=== PATIENT | female | born 1960 | race Caucasian/White ===

== ENCOUNTER 2016-12-27 18:16 | Emergency (ER) | payer MEDICARE ==
[2016-12-27 18:37] VITALS: BP 107/62; PULSE 92; RESP 16; TEMP 98.5; O2SAT 96
--- NOTE | 2016-12-27 19:56 | C.PDOC ---
History Of Present Illness 56 y/o female presents to the ED with complains of left ear pressure and ringing in left ear for the past couple days. Denies headache, dizziness, ear discharge, neck pain, sore throat or any other complaints. Time Seen by Provider: 12/27/16 19:18 Chief Complaint (Nursing): ENT Problem History Per: Patient History/Exam Limitations: None Onset/Duration Of Symptoms: Days Current Symptoms Are (Timing): Still Present Quality (Ear): denies: Discharge Symptoms Have Been: Continuous Severity: Moderate Anticoagulant/Antiplatlet Use?: No Past Medical History Reviewed: Historical Data, Nursing Documentation, Vital Signs Vital Signs: Last Vital Signs Temp 98.5 F 12/27/16 18:36 Pulse 92 H 12/27/16 18:36 Resp 16 12/27/16 18:36 BP 107/62 12/27/16 18:36 Pulse Ox 96 12/27/16 20:41 - Medical History PMH: Anxiety, Asthma, Depression, Diabetes, HTN, Hyperlipidemia, Hyperthyroidism Surgical History: Coronary Stent Family History: States: Unknown Family Hx - Social History Hx Tobacco Use: No Hx Alcohol Use: No Hx Substance Use: No - Immunization History Hx Tetanus Toxoid Vaccination: No Hx Influenza Vaccination: No Hx Pneumococcal Vaccination: No Review Of Systems Except As Marked, All Systems Reviewed And Found Negative. Constitutional: Negative for: Fever ENT: Positive for: Other (left ear pressure, ringing in left ear). Negative for : Ear Discharge, Throat Pain Neurological: Negative for: Headache, Dizziness Physical Exam - Physical Exam Appears: Non-toxic, No Acute Distress Skin: Warm, Dry, No Rash Head: Atraumatic, Normacephalic Eye(s): bilateral: Normal Inspection Ear(s): Left: TM Obscured By Wax (moderate cerumen in canal), Other (no discharge, no tragal tenderness) Nose: Normal Oral Mucosa: Moist Throat: Normal, No Erythema Neck: Normal, Normal ROM, Supple, No Other (swelling) Lymphatic: No Adenopathy Chest: Symmetrical, No Tenderness Cardiovascular: Rhythm Regular, No Murmur Respiratory: Normal Breath Sounds, No Rales, No Rhonchi, No Wheezing Extremity: Bilateral: Atraumatic Neurological/Psych: Oriented x3, Normal Speech Gait: Steady ED Course And Treatment O2 Sat by Pulse Oximetry: 96 (room air) Pulse Ox Interpretation: Normal Progress Note: Instruct patent to follow up with ENT outpatient if symptoms persist in 3-4 days. Disposition Counseled Patient/Family Regarding: Diagnosis, Need For Followup, Rx Given - Disposition Referrals: ENT, Of your choice [Other] Disposition: HOME/ ROUTINE Disposition Time: 19:54 Condition: STABLE Additional Instructions: Please follow up with your ENT May use debrox drops Return to ER if worse Prescriptions: Carbamide Peroxide [Debrox Ear Drops] 3 drop AU BID #1 bottle Instructions: Cerumen Impaction (ED) - Clinical Impression Clinical Impression: Impacted cerumen of left ear - PA / MORALE OFFICER / Resident Statement MD/DO has reviewed & agrees with the documentation as recorded. - Scribe Statement The provider has reviewed the documentation as recorded by the Lu Larkin All medical record entries made by the Lu were at my direction and personally dictated by me. I have reviewed the chart and agree that the record accurately reflects my personal performance of the history, physical exam, medical decision making, and the department course for this patient. I have also personally directed, reviewed, and agree with the discharge instructions and disposition.
== END 2016-12-27 19:59 | disposition home or self-care (01) ==
LOC: C.ER 18:16
DX: H61.22 Impacted cerumen, left ear (principal); I10 Essential (primary) hypertension; E78.5 Hyperlipidemia, unspecified; E11.9 Type 2 diabetes mellitus without complications

== ENCOUNTER 2017-08-28 20:17 | Emergency (ER) | payer MEDICARE ==
[2017-08-28 20:42] VITALS: BP 142/84; PULSE 94; TEMP 99.5; O2SAT 96
--- NOTE | 2017-08-28 21:08 | C.PDOC ---
History Of Present Illness 57 year old female with a past medical history of OA, sciatica presents to the emergency department for evaluation of right back pain for the past three days. Reports that the pain radiates to the right leg and knee. Patient admits chronic pain to the right knee due to osteoarthritis, but states this is worse with the associated back pain. Otherwise, pt denies high fever, chills, CP, SOB, a bd. pain, N/V, denies saddle anesthesia, incontinence, denies new weakness, sensory or vascular deficits to B/L LEs, denies known recent trauma or injury. Ambulate to ED w/assistance cane ( baseline), not in any apparent distress. PMD: Dr. Albert Calderón Time Seen by Provider: 08/28/17 20:43 Chief Complaint (Nursing): Lower Extremity Problem/Injury History Per: Patient History/Exam Limitations: no limitations Onset/Duration Of Symptoms: Days (x3) Current Symptoms Are (Timing): Still Present Past Medical History Reviewed: Historical Data, Nursing Documentation, Vital Signs Vital Signs: Last Vital Signs Temp 99.5 F 08/28/17 20:39 Pulse 94 H 08/28/17 20:39 Resp 18 08/28/17 20:39 BP 142/84 08/28/17 20:39 Pulse Ox 96 08/28/17 21:20 - Medical History PMH: Anxiety, Arthritis, Asthma, Depression, Diabetes, Fibromyalgia, HTN, Hyperlipidemia, Hyperthyroidism Surgical History: Coronary Stent Family History: States: Unknown Family Hx - Social History Hx Tobacco Use: No Hx Alcohol Use: No Hx Substance Use: No - Immunization History Hx Tetanus Toxoid Vaccination: No Hx Influenza Vaccination: No Hx Pneumococcal Vaccination: No Review Of Systems Except As Marked, All Systems Reviewed And Found Negative. Constitutional: Negative for: Fever Gastrointestinal: Negative for: Nausea, Vomiting, Abdominal Pain Musculoskeletal: Positive for: Back Pain (Right), Leg Pain (Right knee pain) Physical Exam - Physical Exam Appears: Non-toxic, No Acute Distress Skin: Normal Color, Warm, No Rash Head: Normacephalic Eye(s): bilateral: PERRL Nose: No Flaring, No Discharge Oral Mucosa: Moist Throat: No Drooling Neck: Trachea Midline, Supple Gastrointestinal/Abdominal: Soft, No Tenderness, No Distention, No Guarding Back: No CVA Tenderness, Muscle Spasm (right lumbar paraspinal), Paraspinal Tenderness (Right lumbar, mod) Extremity: Normal ROM (B/L LEs), Tenderness (Mild tenderness to the posterior aspect of the right knee), No Calf Tenderness (B/L), Capillary Refill (less than 2sec to B/L LEs), No Deformity, No Swelling Neurological/Psych: Oriented x3, Normal Speech, Normal Motor, Normal Sensation, Normal Reflexes ED Course And Treatment O2 Sat by Pulse Oximetry: 96 (RA) Pulse Ox Interpretation: Normal Progress Note: Pt refused UA and further tests offered. Pt request only pain medication. On re-evaluation, pt is afebrile, hemodynamicaly stable. Non- toxic. Ambulatory in ED w/saeine gait, tolerate PO wlel in ED. Abd: benign, (- ) guaridng, (-) rebound. RLE: FAROM of knee, no neurovascular deficits, no calf pain. Back: (-) CVA tenderness. neuorlogicaly intact. Pt has clinical findings c/w Right lower back pain, Right knee pain/posterior aspect. Pt advised. ref. to f/u with PMD in 2-3 days for re-eval. return to ED if any worsening or new changes. Medical Decision Making Medical Decision Making: Time: 20:59 Initial Plan: --Accucheck --Urinalysis Disposition Counseled Patient/Family Regarding: Diagnosis, Need For Followup, Rx Given - Disposition Referrals: Albert Calderón MD [Primary Care Provider] - Disposition: HOME/ ROUTINE Disposition Time: 21:20 Condition: STABLE Additional Instructions: TAKE MEDICATION PRESCRIBED FOLLOW UP WITH PMD, ORTHOPEDIST IN 2-3 DAYS FOR RE-EVALUATION AND TREATMENT. RETURN TO ED IF ANY NEW CHANGES. Prescriptions: Methocarbamol [Robaxin] 500 mg PO TID #14 tab traMADol [Ultram] 50 mg PO TID #7 tab Instructions: Back Pain (ED), Arthralgia (ED), Knee Pain (ED) Forms: [facility] (Israeli) - Clinical Impression Clinical Impression: Arthritis, Lumbar radiculopathy, Knee pain - Scribe Statement The provider has reviewed the documentation as recorded by the Scribe Olena Nogueira All medical record entries made by the Scribe were at my direction and personally dictated by me. I have reviewed the chart and agree that the record accurately reflects my personal performance of the history, physical exam, medical decision making, and the department course for this patient. I have also personally directed, reviewed, and agree with the discharge instructions and disposition.
[2017-08-28 21:54] VITALS: RESP 20
== END 2017-08-28 21:53 | disposition home or self-care (01) ==
LOC: SUPCPDRO 20:17 → C.ER 20:17
DX: M54.16 Radiculopathy, lumbar region (principal); M13.861 Other specified arthritis, right knee; M25.561 Pain in right knee
CPT/HCPCS: 82948; 96372; 99284; J2930

== ENCOUNTER 2017-11-13 13:24 | Emergency (ER) | payer MEDICARE ==
[2017-11-13 13:39] VITALS: BMI 33.8
[2017-11-13 13:45] VITALS: BP 132/78; PULSE 73; RESP 18; TEMP 98.1; O2SAT 96
--- NOTE | 2017-11-13 13:47 | C.PDOC ---
History Of Present Illness 57 year old female presents to the emergency department status-post tripping over a phone cord while visiting a friend [facility] the [facility]. Patient describes her fall as falling back onto her right side. Patient complains of mild pain in her right shoulder, knee, hip, and ankle but denies head contusion or loss of consciousness. Time Seen by Provider: 11/13/17 13:42 Chief Complaint (Nursing): Lower Extremity Problem/Injury History Per: Patient Onset/Duration Of Symptoms: Hrs Current Symptoms Are (Timing): Still Present - Hip Description Of Injury: Fell, Tripped - Knee Description Of Injury: Fell, Other (tripped) - Ankle/Foot Description Of Injury: Fell, Other (tripped) Past Medical History Reviewed: Historical Data, Nursing Documentation, Vital Signs Vital Signs: Last Vital Signs Temp 98.1 F 11/13/17 13:36 Pulse 73 11/13/17 13:36 Resp 18 11/13/17 13:36 BP 132/78 11/13/17 13:36 Pulse Ox 96 11/13/17 13:47 - Medical History PMH: Anxiety, Arthritis, Asthma, Depression, Diabetes, Fibromyalgia, HTN, Hyperlipidemia, Hyperthyroidism Surgical History: Coronary Stent Family History: States: No Known Family Hx - Social History Hx Tobacco Use: No Hx Alcohol Use: No Hx Substance Use: No - Immunization History Hx Tetanus Toxoid Vaccination: No Hx Influenza Vaccination: No Hx Pneumococcal Vaccination: No Review Of Systems Except As Marked, All Systems Reviewed And Found Negative. Musculoskeletal: Positive for: Shoulder Pain, Leg Pain (hip and knee), Foot Pain (ankle). Negative for: Other (head contusion) Neurological: Negative for: Other (loss of consciousness) Physical Exam - Physical Exam Appears: Non-toxic, No Acute Distress Skin: Other (superficial abrasion to the lateral right ankle.) Head: Normacephalic Extremity: Normal ROM (in her right shoulder), Other (stands and walks normally. Right knee without pain or swelling. ) ED Course And Treatment O2 Sat by Pulse Oximetry: 96 (RA) Pulse Ox Interpretation: Normal Medical Decision Making Medical Decision Making: superficial contusions, no acute fx's, fully ambulatory Plan: Motrin 600mg PO Disposition Doctor Will See Patient In The: Office Counseled Patient/Family Regarding: Studies Performed, Diagnosis - Disposition Referrals: Albert Calderón MD [Medical Doctor] - Disposition: HOME/ ROUTINE Disposition Time: 13:47 Condition: GOOD Additional Instructions: ice packs 1/2 hour per hour, nothing hot motrin (as tolerated) 600 mg every 6 hours No hot showers for 2 days- makes joints more inflammed. follow-up with your PMD as needed. Instructions: Preventing Falls in the Older Adult, Contusion (DC) Forms: [employer] (Luxembourgish) - Clinical Impression Clinical Impression: Fall from standing - Scribe Statement The provider has reviewed the documentation as recorded by the Scribe (Tony Saldana) Provider Attestation: All medical record entries made by the Scribe were at my direction and personally dictated by me. I have reviewed the chart and agree that the record accurately reflects my personal performance of the history, physical exam, medical decision making, and the department course for this patient. I have also personally directed, reviewed, and agree with the discharge instructions and disposition.
== END 2017-11-13 13:57 | disposition home or self-care (01) ==
LOC: C.ER 13:24
DX: S30.0XXA Contusion of lower back and pelvis, initial encounter (principal); W01.0XXA Fall on same level from slipping, tripping and stumbling without subsequent striking against object, initial encounter; Y92.129 Unspecified place in nursing home as the place of occurrence of the external cause

== ENCOUNTER 2018-04-26 22:41 | Emergency (ER) | payer MEDICARE ==
[2018-04-26 22:41] VITALS: BMI 33.8
[2018-04-26 23:24] VITALS: TEMP 99.2
--- NOTE | 2018-04-26 23:46 | C.PDOC ---
History Of Present Illness 57 year old female with PMHx of DM, osteoarthritis, chronic back pain, DM, HTN, HLD, hypothyroidism, CAD with stent, [place] presents to the ED c/o productive cough with clear phlegm, abdominal discomfort and diarrhea. Patient reports she went to see her PMD Dr. Calderón who prescribed some medications, however patient reports that when she got to the pharmacy there were no medications for her. Patient has not taken any medications. Patient reports her cough keeps her up at night, and she also has decreased appetite and not able to tolerate PO. Patient also reports having skin patches on her legs and arms for 5 months, she went to see her core java software engineer who prescribed her a cream. Patient has an albuterol nebulizer at home. Patient denies fever, chills, nausea, vomit, back pain, rash, recent travel, sick contacts. Time Seen by Provider: 04/26/18 23:25 Chief Complaint (Nursing): Abdominal Pain History Per: Patient History/Exam Limitations: no limitations Onset/Duration Of Symptoms: Days (3) Current Symptoms Are (Timing): Still Present Location Of Pain/Discomfort: Diffuse Radiation Of Pain To:: None Quality Of Discomfort: "Pain" Associated Symptoms: Diarrhea. denies: Nausea, Vomiting, Loss Of Appetite Alleviating Factors: None Recent travel outside of the [place]: No Additional History Per: Patient Abnormal Vaginal Bleeding: No Past Medical History Reviewed: Historical Data, Nursing Documentation, Vital Signs Vital Signs: Last Vital Signs Temp 99.2 F 04/26/18 23:08 Pulse 87 04/26/18 23:08 Resp 20 04/26/18 23:08 BP 158/85 H 04/26/18 23:08 Pulse Ox 89 L 04/26/18 23:08 - Medical History PMH: Anxiety, Arthritis, Asthma, Depression, Diabetes, Fibromyalgia, HTN, Hyperlipidemia, Hyperthyroidism Surgical History: Coronary Stent Family History: States: Unknown Family Hx - Social History Hx Tobacco Use: No Hx Alcohol Use: No Hx Substance Use: No - Immunization History Hx Tetanus Toxoid Vaccination: No Hx Influenza Vaccination: No Hx Pneumococcal Vaccination: No Review Of Systems Constitutional: Negative for: Fever, Chills Respiratory: Positive for: Cough, Sputum. Negative for: Shortness of Breath Gastrointestinal: Positive for: Abdominal Pain, Diarrhea. Negative for: Nausea, Vomiting Skin: Positive for: Rash Neurological: Negative for: Weakness, Numbness, Headache, Dizziness Physical Exam - Physical Exam Appears: Non-toxic, No Acute Distress Skin: Normal Color, Warm, Dry, Other (plaque skin patches on arms and legs) Head: Atraumatic, Normacephalic Eye(s): bilateral: Normal Inspection Oral Mucosa: Moist Neck: Normal ROM, Supple Chest: Symmetrical Cardiovascular: Rhythm Regular Respiratory: Decreased Breath Sounds (bilaterally ), No Rales, No Rhonchi, No W heezing, Other (congested, wet cough. ) Gastrointestinal/Abdominal: Soft, No Tenderness, No Guarding, No Rebound, Other (pressure on abdomen causea nausea) Extremity: Normal ROM, No Tenderness, No Swelling Neurological/Psych: Oriented x3, Normal Speech, Normal Cognition Gait: Steady ED Course And Treatment - Laboratory Results Result Diagrams: 04/26/18 23:50 04/26/18 23:50 Lab Interpretation: Abnormal (WBC 4.3, Hgb 16.6, Hct 48.5, K+ 5.6,) ECG: Interpreted By Co ECG Rhythm: Sinus Rhythm (with left axis, inferior infarct ? age.) ECG Interpretation: No Acute Changes O2 Sat by Pulse Oximetry: 89 Pulse Ox Interpretation: Other (dusky on RA, improves to 93-94% on 2 L of O2) - Radiology CXR: Interpreted by Co CXR Interpretation: Yes: No Acute Disease Reevaluation Time: 00:57 Reassessment Condition: Improved (after nebulizer treatments.) Medical Decision Making Medical Decision Making: Plan: * EKG * Labs * CXR * Duoneb * Blood culture Disposition Counseled Patient/Family Regarding: Studies Performed, Diagnosis, Need For Followup, Rx Given - Disposition Referrals: Albert Calderón MD [Medical Doctor] - Disposition: HOME/ ROUTINE Disposition Time: 00:58 Condition: IMPROVED Additional Instructions: Use your home nebulizer every 4-6 hours if needed for wheezing. Instructions: Exacerbation of COPD, Stomach Ache and Stomach Upset Forms: [facility] (Arabic) - Clinical Impression Clinical Impression: Diarrhea, COPD exacerbation - Scribe Statement The provider has reviewed the documentation as recorded by the Scribe Josh Palacios All medical record entries made by the Scribe were at my direction and pe rsonally dictated by me. I have reviewed the chart and agree that the record accurately reflects my personal performance of the history, physical exam, medical decision making, and the department course for this patient. I have also personally directed, reviewed, and agree with the discharge instructions and disposition.
[2018-04-26 23:53] LABS: BASO % 0.7 % (0.0-2.0); EOS % 0.1 % (0.0-4.0); HEMOGLOBIN 16.6 g/dL (11.0-16.0); LYMPH # 0.8 K/uL (1.0-4.3); LYMPH % 17.7 % (20.0-40.0); MEAN CORPUSCULAR HEMOGLOBIN 31.4 pg (27.0-31.0); MEAN CORPUSCULAR HGB CONC 34.2 g/dL (33.0-37.0); MEAN PLATELET VOLUME 7.7 fL (7.2-11.7); MONO # 0.4 K/uL (0.0-0.8); MONO % 8.4 % (0.0-10.0); NEUT # 3.1 K/uL (1.8-7.0); NEUT % 73.1 % (50.0-75.0); NRBC % 0.1 % (0.0-2.0); RBC 5.29 Mil/uL (3.80-5.20); WHITE BLOOD COUNT 4.3 K/uL (4.8-10.8)
[2018-04-26] MEDS: Albuterol-Ipratrop 3 mg / 0.5 (3 ml) UD IH STA (23:53)
[2018-04-26] MEDS ORDERED: Albuterol-Ipratrop 3 mg / 0.5 (3 ml) UD ONE (23:54)
[2018-04-27] LABS: MEAN CELL VOLUME 91.8 fL (81.0-99.0)
[2018-04-27 00:11] LABS: ALB/GLOB RATIO 1.3 (1.0-2.1); ALBUMIN 4.5 g/dL (3.5-5.0); ALT/SGPT 50 U/L (9-52); AST/SGOT 87 U/L (14-36); BLOOD UREA NITROGEN 17 mg/dL (7-17); CALCIUM 8.3 mg/dl (8.6-10.4); GFR NON-AFRICAN AMERICAN > 60; LIPASE 83 U/L (23-300)
[2018-04-27] MEDS: Albuterol 0.083% Inhal Sol (2.5 mg/3 mL) UD IH STA (00:35)
[2018-04-27] MEDS ORDERED: Albuterol 0.083% Inhal Sol (2.5 mg/3 mL) UD ONE (00:39)
[2018-04-27 01:24] VITALS: BP 138/74; PULSE 91; RESP 22; O2SAT 93
--- NOTE | 2018-04-27 12:25 | RAD ---
Date of service: 04/27/2018 PROCEDURE: CHEST RADIOGRAPH, 1 VIEW HISTORY: SOB COMPARISON: 07/24/2016 FINDINGS: LUNGS: Clear. PLEURA: No pneumothorax or pleural fluid seen. CARDIOVASCULAR: No radiographic findings to suggest acute or significant cardiovascular disease. OSSEOUS STRUCTURES: No significant abnormalities. VISUALIZED UPPER ABDOMEN: Normal. OTHER FINDINGS: None. IMPRESSION: No active disease. No acute/significant interval changes.
--- NOTE | 2018-04-27 23:10 | CARD ---
APPROVED REPORT Date of service: 04/26/2018 EKG Measurement Heart [id number] <Conclusion> Normal sinus rhythm Possible Left atrial enlargement Left axis deviation Inferior infarct, age undetermined Abnormal ECG
== END 2018-04-27 01:31 | disposition home or self-care (01) ==
LOC: C.ER 22:41
DX: J44.1 Chronic obstructive pulmonary disease with (acute) exacerbation (principal); R19.7 Diarrhea, unspecified
CPT/HCPCS: 71045; 80053; 83690; 85025; 87040; 93005; 96374; 99284; J2930

== ENCOUNTER 2018-10-08 18:49 | Emergency (ER) | payer MEDICARE ==
[2018-10-08 18:50] VITALS: BMI 33.8
[2018-10-08 19:24] VITALS: BP 124/78; PULSE 98; RESP 17; TEMP 98; O2SAT 98
--- NOTE | 2018-10-08 19:32 | C.PDOC ---
History Of Present Illness 58 year old female with a history of HTN and diabetes is brought into the emergency department via ambulance for evaluation of numbness in her tongue for the last hour. pt also states "slurred speech". reports this has been ongoing for months Patient has a history of anxiety and depression, and states that her symptoms may be related to that. Patient is specifically requesting an EKG to rule out stroke. Time Seen by Provider: 10/08/18 18:56 Chief Complaint (Nursing): Weakness/Neurological Deficit History Per: Patient History/Exam Limitations: no limitations Onset/Duration Of Symptoms: Other (one week) Current Symptoms Are (Timing): Still Present Seizure Or Post-ictal Symptoms: None Past Medical History Reviewed: Historical Data, Nursing Documentation, Vital Signs Vital Signs: Last Vital Signs Temp 98 F 10/08/18 19:24 Pulse 98 H 10/08/18 19:24 Resp 17 10/08/18 19:24 BP 124/78 10/08/18 19:24 Pulse Ox 98 10/08/18 19:24 - Medical History PMH: Anxiety, Arthritis, Asthma, COPD, Depression, Diabetes, Fibromyalgia, HTN, Hyperlipidemia, Hyperthyroidism Surgical History: Coronary Stent Family History: States: No Known Family Hx - Social History Hx Tobacco Use: No Hx Alcohol Use: No Hx Substance Use: No - Immunization History Hx Tetanus Toxoid Vaccination: No Hx Influenza Vaccination: No Hx Pneumococcal Vaccination: No Review Of Systems Except As Marked, All Systems Reviewed And Found Negative. Constitutional: Negative for: Fever, Chills Cardiovascular: Negative for: Chest Pain Respiratory: Negative for: Cough, Shortness of Breath Gastrointestinal: Negative for: Nausea, Vomiting, Abdominal Pain, Diarrhea Neurological: Positive for: Numbness, Change in Speech Physical Exam - Physical Exam Appears: Non-toxic, No Acute Distress Skin: Normal Color, Warm, Dry Head: Atraumatic, Normacephalic Eye(s): bilateral: Normal Inspection, PERRL, EOMI Ear(s): Bilateral: Normal Nose: Normal Oral Mucosa: Moist Neck: Normal, Supple Chest: Symmetrical, No Tenderness Cardiovascular: Rhythm Regular, No Murmur Respiratory: No Rales, No Rhonchi, No Wheezing Gastrointestinal/Abdominal: Soft, No Tenderness Extremity: Normal ROM Neurological/Psych: Oriented x3, Normal Speech, Normal Cognition, Normal Cranial Nerves, Normal Motor, Normal Sensation, Normal Reflexes ED Course And Treatment O2 Sat by Pulse Oximetry: 98 (RA) Pulse Ox Interpretation: Normal Medical Decision Making Medical Decision Making: Plan: Glucose POC upon ed arrival pt reports "slurred speech" started 1 hour ago. symptosm less likely to be cva/tia related. pt specifically requesting "ekg to make sure i didnt' ahve a stroke" i advised she will neee further eval to exclude cva. at thsi time, she declines. Patient refuses other diagnostic tests, and is requesting discharge. explained risk extensviely. spent extensive time beside explainig diagnosistic imaigng modailities. pt declines. states she will return with worsening. Disposition - Disposition Disposition: AGAINST MEDICAL ADVICE Disposition Time: 19:00 Condition: UNKNOWN Instructions: Dysarthria, Leaving Against Medical Advice Forms: [employer] (Danish) - Clinical Impression Clinical Impression: Slurred speech, Left against medical advice - Scribe Statement The provider has reviewed the documentation as recorded by the Scribe (Tony Saldana) Provider Attestation: All medical record entries made by the Scribe were at my direction and personally dictated by me. I have reviewed the chart and agree that the record accurately reflects my personal performance of the history, physical exam, medical decision making, and the department course for this patient. I have also personally directed, reviewed, and agree with the discharge instructions and disposition.
== END 2018-10-08 19:23 | disposition left against medical advice (07) ==
LOC: C.ER 18:49
DX: R47.81 Slurred speech (principal)